=== PATIENT | female | born 1985 | race Caucasian/White ===

== ENCOUNTER → 2021-03-14 | Outpatient (CLI) | payer OTHER ==
--- NOTE | 2021-03-14 10:55 | KCIC ---
EXAM: Brain MRI without contrast. HISTORY: Altercation speech. Stuttering. Headaches. TECHNIQUE: Multiplanar, multisequence magnetic resonance imaging of the brain was performed without c ontrast. COMPARISON: None. FINDINGS: There is no restricted diffusion to suggest acute or subacute infarction. There is no susce ptibility effect to suggest hemorrhage. There is no mass effect or midline shift. There is no hydroce phalus. No suspicious white matter lesion is seen. There is a tiny mucous tension cyst within the lef t maxillary sinus. The mastoid air cells are clear. There are normal flow voids within the cerebral v essels. There is no suspicious calvarial lesion. There are low-lying cerebellar tonsils, not within l imits for a Chiari I malformation. IMPRESSION: No acute intracranial finding. Electronically signed by: Ju Puente MD (03/14/2021 10:52 AM) [id number]
== END ==
LOC: KCIC MRI 09:17
PROVIDERS: ATTEND Nurse Practitioner Family
DX: R47.89 Other speech disturbances (principal); Z86.718 Personal history of other venous thrombosis and embolism
CPT/HCPCS: 70551